=== PATIENT | female | born 1970 | race Caucasian/White ===

== ENCOUNTER 2020-11-28 18:27 | Emergency (ER) | payer OTHER, SELFPAY ==
--- NOTE | 2020-11-28 18:30 | ED.FEMALEGU ---
HPI - Female Genitourinary General Chief complaint: Urogenital-Female Stated complaint: Poss UTI Time Seen by Provider: 11/28/20 18:31 Source: patient and RN notes reviewed History of Present Illness HPI Narrative: Patient is a 50-year-old female who presents the urgent care with complaints of a possible UTI. Patient states that for the last 3 days she has had frequency, urgency, dribbling and nausea. Patient states she has vomited once each day since her symptoms started. Patient states that the burning is now out of control. Patient has been using [id number] Azo without any improvements. Patient does have a history of UTIs and they seem to be more frequent as she has gained weight . Patient states that she is recently started phentermine and has a follow-up with her doctor tomorrow. Patient has not seen a urologist in the past. Denies of any blood in the urine, fever. No other acute complaints. No acute distress noted. Patient aware of the plan of care. Some parts of this dictation were generated by voice recognition software and may contain typographical and/or grammatical inaccuracies. Related Data Home Medications Medication Instructions Recorded Confirmed black cohosh 540 mg PO DAILY 11/28/20 11/28/20 bupropion HCl 300 mg PO QAM 11/28/20 11/28/20 metformin 1,000 mg PO BID 11/28/20 11/28/20 phentermine 37.5 mg PO DAILY 11/28/20 11/28/20 rosuvastatin 10 mg PO DAILY 11/28/20 11/28/20 Allergies Allergy/AdvReac Type Severity Reaction Status Date / Time aspirin AdvReac Unknown Verified 11/28/20 18:48 Review of Systems Review of Systems: Narrative: CONSTITUTIONAL: Denies fever, chills, or sweats. EYES: Denies visual changes, redness, or discharge. ENT: Denies rhinorrhea, congestion, sore throat, or otalgia. CARDIOVASCULAR: Denies chest pain, palpitations, or edema. RESPIRATORY: Denies cough or dyspnea. GASTROINTESTINAL: Denies abdominal pain, nausea, vomiting, or diarrhea. GENITOURINARY: Reports of urinary frequency, incontinence, dysuria and urgency SKIN: Denies rash or itching. MUSCULOSKELETAL: Denies back pain, joint pain, or myalgia. NEUROLOGIC: Denies headache, numbness, or weakness. All other systems reviewed are negative, except as documented in HPI. PMFSH Social History Social History Gender identity (if verbalized by the patient): Female Comments At the time of my signature, I reviewed and agree with the nursing past medical, surgical, social, and family history. There is no relevant family history pertinent to the patient complaint. Exam Narrative: Exam Narrative: GENERAL: This is a well-nourished, well-developed patient, in no apparent distress. HEAD: normocephalic, atraumatic. EYES: PERRL. Sclera clear/white. Vision is grossly intact. EARS: External ears normal NOSE: External nose normal with no obvious nasal discharge, nares without redness, no rhinorrhea. THROAT: Mucous membranes moist NECK: Neck supple CARDIOVASCULAR: Regular rate and rhythm without murmurs, gallops, or rubs. RESPIRATORY: Clear to auscultation. Breath sounds equal bilaterally. No wheezes, rales, or rhonchi. GASTROINTESTINAL: Abdomen soft, moderate diffuse suprapubic tenderness,, nondistended. Bowel sounds are active. SKIN: warm, intact with no suspicious lesions or rash, good texture and turgor. NEURO: awake, alert, and oriented to person, place and time. There were no obvious focal neurologic abnormalities. EXTREMITIES: No clubbing, cyanosis, or edema. BACK: Mild bilateral CVA tenderness Course Vital Signs Vital signs: Vital Signs Temperature 98.9 F 11/28/20 18:35 Pulse Rate 102 H 11/28/20 18:35 Respiratory Rate 14 11/28/20 18:35 Blood Pressure 131/86 11/28/20 18:35 Pulse Oximetry 98 11/28/20 18:35 Temperature 98.9 F 11/28/20 18:35 Pulse Rate 102 H 11/28/20 18:35 Respiratory Rate 14 11/28/20 18:35 Blood Pressure 131/86 11/28/20 18:35 Pulse Oximetry 98 11/28/20 18:35 R
[2020-11-28 18:35] VITALS: BP 131/86; PULSE 102; RESP 14; TEMP 37.2; O2SAT 98
== END 2020-11-28 19:16 | disposition home or self-care (01) ==
PROVIDERS: Emergency Provider Nurse Practitioner Family
DX: N39.0 Urinary tract infection, site not specified (principal); E78.00 Pure hypercholesterolemia, unspecified; E11.9 Type 2 diabetes mellitus without complications; F32.9 Major depressive disorder, single episode, unspecified
CPT/HCPCS: 81003; 87086; 99213; G0463

== ENCOUNTER 2023-07-16 09:21 | Outpatient (CLI) | payer OTHER, SELFPAY ==
--- NOTE | 2023-07-16 09:32 | ECG_ITS ---
Measurements Intervals [place] Rate: 84 P: 15 GA: 143 QRS: -26 QRSD: 92 T: 31 QT: 356 QTc: 421 Interpretive Statements SINUS RHYTHM BORDERLINE LEFT AXIS DEVIATION [QRS AXIS < -20] LOW QRS VOLTAGE IN PRECORDIAL LEADS [QRS DEFLECTION < 1.0 mV IN CHEST LEADS] MINIMAL VOLTAGE CRITERIA FOR LVH, CONSIDER NORMAL VARIANT [MEETS CRITERIA IN ONE OF: R(aVL), S(V1), R(V5), R(V5/V6)+S(V1)] NONSPECIFIC T-WAVE ABNORMALITY NO PREVIOUS ECG AVAILABLE FOR COMPARISON Electronically Signed On 07-16-2023 15:05:03 ACCOUNT INSTALLATION SPECIALIST by Venkat Perez M.D.
[2023-07-16 09:49] LABS: Hematocrit 37.8 % (37.0-47.0); Hemoglobin 11.6 g/dL (12.0-15.0)
[2023-07-16 10:02] LABS: Alanine Aminotransferase 19 U/L (6-35); Albumin Level 4.1 g/dL (3.5-5.1); Alkaline Phosphatase 52 U/L (38-126); Anion Gap 7 mmol/L (8-16); Aspartate Amino Transferase 22 U/L (14-36); Bilirubin,Total 0.3 mg/dL (0.2-1.3); Blood Urea Nitrogen 5 mg/dL (7-17); Calcium 9.5 mg/dL (8.4-10.2); Carbon Dioxide 24 mmol/L (22-30); Chloride 105 mmol/L (98-107); Estimated Glomerular Filt Rate > 60; Glucose 110 mg/dL (65-110); Sodium 136 mmol/L (137-145)
== END 2023-07-16 09:22 | disposition home or self-care (01) ==
LOC: ANHSURGERY 09:28
PROVIDERS: Anesthesiology; PCP Nurse Practitioner Adult Health; Visit Provider Obstetrics & Gynecology
DX: N92.0 Excessive and frequent menstruation with regular cycle (principal); E78.00 Pure hypercholesterolemia, unspecified; D64.9 Anemia, unspecified; Z01.818 Encounter for other preprocedural examination
CPT/HCPCS: 36415; 80053; 85014; 85018; 86850; 86900; 86901; 93005

== ENCOUNTER 2023-07-22 00:46 | Day surgery (SDC) | payer OTHER, SELFPAY ==
[2023-07-09 09:47] VITALS: BMI 41.5
--- NOTE | 2023-07-09 09:51 | PC.NURSE ---
Report to the Outpatient Waiting Room, entrance under the green pavilion located off [facility], at time 9:00 on date 07/22/23. Planned Procedure Time: 11:00. Time changes happen often and if your time is changed the preop area will call you the afternoon before. - You and your visitor will be asked to self-screen and do not enter if you have any COVID symptoms. - A mask is optional within the hospital at this time. Patients may have clear liquids (water, carbonated beverages, clear teas, apple juice) until 3 hours prior to surgery (8:00) with a maximum of 20 ounces. - No food from midnight until time of surgery Take the following medications with a SIP of water the morning of surgery: NONE DO NOT STOP ANY OF YOUR OTHER PRESCRIPTION MEDICATIONS PRIOR TO SURGERY ?EXCEPT THE FOLLOWING Medications to discontinue per physician: VITAMINS/SUPPLEMENTS Date to take last dose: 07/18/23 Please no make-up, nail cuban, hairspray, perfume, deodorant, or body powder the day of surgery. No jewelry (including any body piercings) or valuables the day of surgery, leave them at home. Please take a shower or bath the night before, or the morning of, surgery with an antibacterial soap. Wear comfortable, loose fitting clothing. - Jewelry must be removed prior to entering the operating room. Rings and piercings that are not removed may be cut off. - The hospital will not accept responsibility for valuables. - Please leave all valuables, including medications, at home the day of surgery. If you are going home after surgery, a licensed street flusher driver must drive you home. - NO public transportation without another adult if you receive anesthesia. - We recommend that an adult stay with you for 24 hours following discharge. - We also recommend that you do not drive, make important decision, drink alcoholic beverages, or take any drugs that were not prescribed by your health care provider for at least 24 hours after your discharge time. Follow any additional instructions given to you from your surgeon. If you or anyone in your household have experienced Covid symptoms in the past week, please notify your surgeon or the nurse liaison at the phone number below for possible testing. Telephone instructions given to PT - RAVINDRA MEJIA and asked if any additional questions and then verbalized understanding. Patient advised to call surgeon office or pre surgery nurse liaison [phone] if any additional questions.
[2023-07-22] VITALS (9 sets, daily range): BP systolic 111–142; BP diastolic 63–89; PULSE 68–88; RESP 10–20; TEMP 36.4–37.1; O2SAT 92–100
[2023-07-22] MEDS: KETOROLAC 15 MG/ML VIAL (*BKC) IV PUSH (09:45)
[2023-07-22] MEDS: LACTATED RINGERS 1,000 ML 30 ML IV CONT ×2 (09:45→14:30)
[2023-07-22] MEDS: ACETAMINOPHEN 500 MG TABLET 1000 MG PO (09:45)
--- NOTE | 2023-07-22 09:56 | P.PNAN_ITS ---
Anes - Initial Pre Proc Eval Procedure: Operation Date: 07/22/23 11:00 Proposed Procedures p Total Laparoscopic Hysterectomy with Bilateral Salpingo-oophorectomy - Martin Juarez MD Date/Time: 07/22/23 09:56 Surgeon: Martin Juarez MD Pre Op Diagnosis: Menorrhagia Patient Data Age: 52 Gender: F Height: 1.7 m Weight: 120.5 kg Allergies Allergy/AdvReac Type Severity Reaction Status Date / Time aspirin AdvReac Gastrointestinal Verified 07/09/23 09:46 Upset Home Medications Medication Instructions Recorded Confirmed Type rosuvastatin 10 mg tablet 10 mg PO HS 11/28/20 07/09/23 History ferrous sulfate 325 mg (65 mg 325 mg PO HS 07/09/23 07/09/23 History iron) tablet (Iron (ferrous sulfate)) Patient hx anesthesia problems: none Family hx anesthesia problems: none Results Review: All pre-operative results and documents have been reviewed as part of the pre- operative evaluation. [facility] Past Medical History Medical History (Updated 07/22/23 @ 09:58 by Hussein Obregon MD) Morbid obesity Surgical History Surgical History (Updated 07/22/23 @ 09:58 by Hussein Obregon MD) History of cholecystectomy History of tubal ligation Social History Social History Smoking status: Never smoker Alcohol intake: current Alcohol use details: RARE Substance use: never Substance use type: does not use Living arrangements: with family Gender identity (if verbalized by the patient): Female Spiritual care concerns: No Anes - Eval Final PreProcedure Day of Procedure 07/22/23 09:56 Patient weight: morbidly obese Heart: regular rate and rhythm Lungs: clear to auscultation Airway: Mallampati scale class II Neurological: alert and oriented Last oral intake: >/= 8 hours ASA classification: III Emergent: no Anesthetic plan: proceed Anesthesia type and monitoring: general ETT and standard monitoring Results Review: All pre-operative results and documents have been reviewed as part of the pre- operative evaluation. Informed Consent: The patient's anesthetic plan and its attendant risks and benefits were discussed with the patient/family/POA. Questions were solicited and answers provided to the satisfaction of the patient/family/POA.
--- NOTE | 2023-07-22 11:02 | WPDHPUPDATE1 ---
History and Physical Update Update Date/Time: 07/22/23 11:02 History and Physical has been reviewed, including an updated exam of the patient. There are NO changes in the patient's condition. Risks, benefits, and alternatives have been discussed and questions answered. Patient agrees to proceed with procedure.
[2023-07-22] MEDS: ceFAZolin 3 GM/D5W 100 ML 100 ML IVPB (11:28)
[2023-07-22] MEDS: ceFAZolin SODIUM 1 GM VIAL (11:28)
--- NOTE | 2023-07-22 13:45 | P.OP_ITS ---
Procedure Note - Detailed Date of Procedure 07/22/23 Pre-op Diagnosis Menorrhagia, pelvic pain Post-op Diagnosis Same Procedure Performed Total laparoscopic hysterectomy and bilateral salpingo-oophorectomy. Surgeon Martin Juarez MD Anesthesia General Indications menorrhagia, pelvic pain Findings moderately enlarged uterus, normal appearing tubes and ovaries with previous tubal ligation and a truncated remnant tube Description of Procedure This patient was taken to the operating room. She was prepped and draped in the dorsal lithotomy position after induction of general anesthesia. The uterine manipulator and Lyn cup were placed. This was done with a speculum and tenaculum. The speculum was placed. The cervix was grasped with a tenaculum. The stay sutures were placed at 3 and 9:00 a.m.. The stay sutures of 0 Vicryl were brought through the appropriately sized Lyn cup. The tip of the CHAYITO manipulator was placed in the intrauterine cavity. The cup was slid into place around the cervix and into the fornices. It was locked into place. The sutures were then wrapped around the handle and tied under tension. A 5 mm skin incision was made in the left upper quadrant the abdomen. A 5 mm trocar was inserted into the intrauterine cavity under direct visualization of the scope. Pneumoperitoneum was achieved. A left lower quadrant 11 mm incision was made with scalpel. An 11 mm trocar was inserted into the anterior abdominal cavity under direct visualization the scope. A 5 mm infraumbilical incision was made with a scalpel and a 5 mm trocar was inserted the intra-abdominal cavity under direct visualization of the scope. Bilateral ureteral lysis was performed. This was done from the pelvic brim down to the uterine artery. This was done with careful dissection using sharp and bl unt dissection. The infundibulopelvic ligaments were isolated after identification of the ureters bilaterally. These infundibulopelvic ligaments were cauterized and transected with LigaSure cautery. The para ovarian tissue was cauterized and transected with LigaSure cautery bilaterally. Moving around the ovary into the broad ligament the tissue was cauterized transected with LigaSure cautery. The round ligaments were cauterized transected with LigaSure cautery this was all done in a bilateral fashion. In a stepwise fashion along the lateral aspects of the uterus the round ligament and broad ligaments were cauterized transected down to the level of the uterine arteries. A bladder flap was created in the bladder was moved distally to the end of the cervix and over the Lyn cup. The bilateral uterine arteries were cauterized and transected. Colpotomy was then performed. In a circumferential fashion the vagina was transected using unipolar cautery. The incision was made down on the Lyn cup. The uterus, cervix, fallopian tubes and ovaries were taken out through the vagina. A pneumo occluder was placed in the vagina. The vaginal cuff was closed with a 0 V lock suture in a running fashion. The pelvis was irrigated with copious amounts antibiotic irrigation. The ureters were again examined and found to be intact and flowing freely under the uterine arteries into the bladder. The bladder was intact. It was examined directly. The vagina was irrigated with Betadine solution after removal of the Pneumo occluder. The patient was taken to recovery room. She was stable condition. Sponge lap and needle counts were correct x2. Drains Yes Packing No Pathology Yes Complications No immediate complications Condition Stable Disposition Floor
[2023-07-22] MEDS: fentaNYL CITRATE INJ (*CRX) 100 MCG/2 ML VIAL 25 MCG IV PUSH ×4 (14:57→15:54)
[2023-07-22] MEDS: DEXTROSE 5%/0.45% SOD CHL 1,000 ML 125 ML IV CONT (16:34)
[2023-07-22] MEDS: KETOROLAC 30 MG/ML VIAL (*BKC) IV PUSH (16:48)
[2023-07-22] MEDS: HYDROcodone/acetaminophen (*CRX) 10-325 MG TABLET 1 TAB PO ×2 (18:42→21:42)
[2023-07-23] MEDS: IBUPROFEN 600 MG TABLET PO (02:20)
[2023-07-23] MEDS: HYDROcodone/acetaminophen (*CRX) 10-325 MG TABLET 1 TAB PO (02:20)
[2023-07-23 05:20] VITALS: BP 112/63; PULSE 87; RESP 16; TEMP 37.4
[2023-07-23] MEDS: HYDROcodone/acetaminophen (*CRX) 5-325 MG TABLET 1 TAB PO (05:21)
[2023-07-23 07:50] VITALS: BP 101/72; PULSE 76; RESP 18; TEMP 37.2; O2SAT 95
--- NOTE | 2023-07-23 08:22 | PM.GYNPNOP ---
LIFE ADVISOR - A/P Postoperative Procedures: Procedures Operation Date: 07/22/23 11:00 Actual Procedure Side Surgeon p Total Laparoscopic Hysterectomy with Bilateral Salpingo-oophorectomy Bilateral Martin Juarez MD Postoperative day: 1 Postoperative status: doing well Postoperative plan: see orders Time Spent With Patient Time: Total time spent is greater than 50% in coordination of care (as documented) at patient's floor/unit and/or counseling patient: Time with patient: less than 15 minutes LIFE ADVISOR- PN:Subj Post-Op Subjective Date/time seen: 07/23/23 08:22 Subjective: patient reports feeling better, patient has no complaints and pain is well controlled Exam Const: General: healthy appearing, comfortable and no acute distress Resp: Auscultation: clear to auscultation bilaterally, no rales, no rhonchi and no wheezes Cardio: Rate: regular rate Heart sounds: no click, no murmurs and no rubs GI: Inspection: non-distended Auscultation: normal bowel sounds Extrem: General: normal to inspection, no pedal edema and no calf tenderness LIFE ADVISOR - PN: Obj Data Vital Signs Vital Signs: Vital Signs - 24 hr 07/22/23 09:45 07/22/23 14:30 07/22/23 14:45 Temperature 97.6 F 97.5 F L Pulse Rate 80 68 68 Respiratory Rate 14 14 13 Blood Pressure 128/70 128/83 132/82 Pulse Oximetry 97 100 100 Oxygen Delivery Room Air Simple Face Mask Simple Face Mask Oxygen Flow Rate 8 8 07/22/23 15:00 07/22/23 15:15 07/22/23 15:30 Temperature Pulse Rate 69 71 88 Respiratory Rate 15 12 12 Blood Pressure 135/87 139/84 142/84 H Pulse Oximetry 100 100 94 Oxygen Delivery Simple Face Mask Simple Face Mask Room Air Oxygen Flow Rate 8 6 07/22/23 15:45 07/22/23 16:09 07/22/23 16:09 Temperature 98.4 F Pulse Rate 82 68 Respiratory Rate 10 L 18 Blood Pressure 141/89 H 111/63 Pulse Oximetry 92 98 Oxygen Delivery Room Air Room Air Oxygen Flow Rate 07/22/23 18:41 07/23/23 05:20 07/23/23 08:00 Temperature 98.8 F 99.3 F Pulse Rate 72 87 Respiratory Rate 20 16 Blood Pressure 138/72 112/63 Pulse Oximetry Oxygen Delivery Room Air Oxygen Flow Rate Intake/Output Intake/Output: Intake & Output 07/20/23 07/21/23 07/22/23 07/23/23 23:59 23:59 23:59 23:59 Intake Total 50 500 Output Total 760 700 Balance -710 -200 Meds/Results Medications: Active Medications Generic Name Dose Route Start Last Admin Trade Name Freq PRN Reason Stop Dose Admin Hydrocodone Bitart/Acetaminophen 1 tab 07/22/23 16:04 07/23/23 05:21 Hydrocodone/Acetaminophen (*Crx) 5-325 Mg Tablet PO 1 tab Q3H PRN Administration Pain Rated 5 or Less Hydrocodone Bitart/Acetaminophen 1 tab 07/22/23 16:04 07/23/23 02:20 Hydrocodone/Acetaminophen (*Crx) 10-325 Mg Tablet PO 1 tab Q3H PRN Administration Pain Rated 6 or Greater Fentanyl Citrate 50 mcg 07/22/23 20:56 Fentanyl Citrate Inj (*Crx) 100 Mcg/2 Ml Vial IV PUSH Q2HR PRN For pain not relieved by norco Ibuprofen 600 mg 07/22/23 16:04 07/23/23 02:20 Ibuprofen 600 Mg Tablet PO 600 mg Q6H PRN Administration Cramping Ketorolac Tromethamine 30 mg 07/22/23 16:04 07/22/23 16:48 Ketorolac 30 Mg/Ml Vial (*Bkc) IV PUSH 07/27/23 16:03 30 mg Q6H PRN Administration Pain Rated 4-6 Naloxone HCl 0.1 mg 07/22/23 16:04 Naloxone Hcl 0.4 Mg/Ml Vial IV PUSH Q2M PRN Respiratory rate less than 10 Ondansetron HCl 4 mg 07/22/23 16:04 Ondansetron Inj 4 Mg/2 Ml Vial IV PUSH Q6H PRN Nausea And Vomiting Simethicone 80 mg 07/22/23 20:59 Simethicone 80 Mg Tab.Chew PO Q2HR PRN Gas Discomfort
== END 2023-07-23 10:23 | disposition home or self-care (01) ==
LOC: ANHSURGERY 09:00 → ANHOB2 16:07
PROVIDERS: PCP Nurse Practitioner Adult Health; Visit Provider Obstetrics & Gynecology
PROC: 0UT9FZZ Resection of Uterus, Via Natural or Artificial Opening With Percutaneous Endoscopic Assistance (ICD-10-PCS; CPT 58571; principal; 2023-07-22 11:00)
DX: N92.0 Excessive and frequent menstruation with regular cycle (principal); N85.8 Other specified noninflammatory disorders of uterus; K21.9 Gastro-esophageal reflux disease without esophagitis; D64.9 Anemia, unspecified; F41.9 Anxiety disorder, unspecified; E78.00 Pure hypercholesterolemia, unspecified; E28.2 Polycystic ovarian syndrome; E66.9 Obesity, unspecified; Z68.41 Body mass index [BMI] 40.0-44.9, adult; Z90.49 Acquired absence of other specified parts of digestive tract; Z82.49 Family history of ischemic heart disease and other diseases of the circulatory system; Z80.0 Family history of malignant neoplasm of digestive organs; Z80.49 Family history of malignant neoplasm of other genital organs; Z80.8 Family history of malignant neoplasm of other organs or systems
CPT/HCPCS: 58571; 36415; 80053; 85014; 85018; 86850; 86900; 86901; 88307; 93005; 99199; A9270; J0330; J0690; J1100; J1170; J1200; J1885; J2250; J2405; J2704; J3010; J7030; J7120